=== PATIENT | female | born 1960 | race Caucasian/White ===

== ENCOUNTER 2020-06-23 01:08 | Emergency (ER) | payer MEDICARE, BC, SELFPAY ==
[2020-06-23 01:15] VITALS: BP 161/92; PULSE 71; RESP 18; TEMP 36.8; O2SAT 94; BMI 21.7
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
[2020-06-23 02:54] VITALS: BP 133/95; PULSE 75; RESP 18; O2SAT 97
== END 2020-06-23 02:54 | disposition home or self-care (01) ==
PROVIDERS: Emergency Provider Nurse Practitioner Family
DX: S01.01XA Laceration without foreign body of scalp, initial encounter (principal); V86.59XA Driver of other special all-terrain or other off-road motor vehicle injured in nontraffic accident, initial encounter
CPT/HCPCS: 12001; 12345; 70450; 99281; 99283